=== PATIENT | male | born 1975 | race Caucasian/White ===

== ENCOUNTER 2016-09-21 20:46 | Emergency (ER) | payer OTHER ==
[~2016-09-21] VITALS: Ht 172.7 cm; Wt 1009.2 kg
[~2016-09-21 20:46] MED LIST: VITAMIN D PO
[2016-09-21] MEDS ORDERED: PREDNISONE10 MG PO (21:32)
== END 2016-09-21 21:35 | disposition home or self-care (01) ==
LOC: ED 20:46
DX: L30.9 Dermatitis, unspecified (principal); Z88.0 Allergy status to penicillin; Z88.6 Allergy status to analgesic agent

== ENCOUNTER → 2016-10-02 | Outpatient (CLI) | payer OTHER ==
[~2016-10-02] MED LIST changes: +PREDNISONE10 MG PO
[2016-10-02 08:52] LABS: BASO % 0.4 % (0.0-1.0); EOS # 0.2 10*3/uL (0.0-0.4); EOS % 2.3 % (1.0-4.0); HEMATOCRIT 44.5 % (42.0-52.0); HEMOGLOBIN 14.2 g/dl (14.0-18.0); LYMPH % 27.7 % (27.0-41.0); MEAN CELL VOLUME 92.7 fl (80.0-94.0); MEAN CORPUSCULAR HGB 29.6 pg (27.0-31.0); MEAN CORPUSCULAR HGB CONC 31.9 g/dl (33.0-37.0); MEAN PLATELET VOLUME 10.6 fl (9.6-12.3); MONO # 0.6 10*3/uL (0.1-1.0); MONO % 8.2 % (3.0-9.0); NEUT # 4.5 10*3/uL (2.3-7.9); PLATELET COUNT AUTOMATED 248 10*3/uL (130-400); RED CELL DISTRI WIDTH 13.2 % (0-14.5); WHITE BLOOD COUNT 7.4 10*3/uL (4.8-10.8)
[2016-10-02 09:09] LABS: ALBUMIN 3.9 gm/dl (3.1-4.5); ALKALINE PHOSPHATASE 70 U/L (45-117); BILIRUBIN, TOTAL 1.3 mg/dl (0.2-1.0); BUN 14 mg/dl (7-24); CARBON DIOXIDE 34 mmol/L (21-32); CHLORIDE 106 mmol/L (98-107); CHOLESTEROL 144 mg/dL (<200); EST GLOM FILT AFRICAN AMERICAN > 60 ml/min; GLUCOSE 77 mg/dL (65-99); POTASSIUM 4.9 mmol/L (3.5-5.1); SGOT/AST 11 IU/L (3-35); SGPT/ALT 21 U/L (12-78); SODIUM 141 mmol/L (136-145); TOTAL PROTEIN 7.4 gm/dL (6.4-8.2); TRIGLYCERIDES 53 mg/dl (<150)
[2016-10-02 09:10] LABS: PREALBUMIN 24 mg/dl (20-40)
[2016-10-02 09:24] LABS: FERRITIN 294.3 ng/mL (22.0-322.0); VITAMIN D, 25-HYDROXY 30.1 ng/mL (30-100)
[2016-10-02 09:25] LABS: FOLIC ACID 4.58 ng/mL (>5.38)
== END | disposition home or self-care (01) ==
LOC: LAB 07:55
PROVIDERS: Physician Assistant
DX: K91.2 Postsurgical malabsorption, not elsewhere classified (principal)